=== PATIENT | female | born 1990 | race Caucasian/White ===

== ENCOUNTER → 2020-08-10 09:28 | Outpatient (BNVA) | payer OTHER, SELFPAY | PROVIDERS: PCP Internal Medicine; Referring Provider Internal Medicine; Visit Provider Physician Assistant | DX: E66.3 Overweight (principal); Z68.27 Body mass index [BMI] 27.0-27.9, adult; K90.49 Malabsorption due to intolerance, not elsewhere classified; Z98.84 Bariatric surgery status | CPT/HCPCS: 99214 ==

== ENCOUNTER → 2020-08-13 15:29 | Outpatient (BNVA) | payer OTHER, SELFPAY | PROVIDERS: PCP Internal Medicine; Visit Provider Physician Assistant | DX: K29.00 Acute gastritis without bleeding (principal); E66.3 Overweight; Z68.27 Body mass index [BMI] 27.0-27.9, adult; K90.49 Malabsorption due to intolerance, not elsewhere classified; Z98.84 Bariatric surgery status | CPT/HCPCS: 99213 ==

== ENCOUNTER → 2020-08-20 08:20 | Outpatient (BNVA) | payer OTHER, SELFPAY | PROVIDERS: PCP Internal Medicine; Visit Provider Physician Assistant | DX: K21.9 Gastro-esophageal reflux disease without esophagitis (principal); Z98.84 Bariatric surgery status; Z71.3 Dietary counseling and surveillance | CPT/HCPCS: 99213 ==

== ENCOUNTER → 2020-09-08 13:30 | Outpatient (BNVA) | payer OTHER, SELFPAY | PROVIDERS: PCP Internal Medicine; Visit Provider Dietitian, Registered | DX: Z76.89 Persons encountering health services in other specified circumstances (principal) ==

== ENCOUNTER 2020-11-05 14:32 | Outpatient (REF) | payer OTHER, SELFPAY | END 2020-11-05 14:33 | disposition home or self-care (01) | LOC: HO.LAB 14:32 | PROVIDERS: Visit Provider Internal Medicine | DX: Z20.822 Contact with and (suspected) exposure to COVID-19 (principal) | CPT/HCPCS: 36415; C9803; U0003 ==

== ENCOUNTER → 2020-11-09 08:19 | Outpatient (BNVA) | payer OTHER, SELFPAY | PROVIDERS: PCP Internal Medicine; Visit Provider Dietitian, Registered | DX: Z76.89 Persons encountering health services in other specified circumstances (principal) ==

== ENCOUNTER 2021-10-14 22:59 | Emergency (ER) | payer OTHER, SELFPAY ==
[2021-10-14 23:04] VITALS: BP 120/67; PULSE 63; RESP 16; TEMP 36.7; O2SAT 100; BMI 28.3
== END 2021-10-15 00:41 | disposition left against medical advice (07) ==
PROVIDERS: Emergency Provider Emergency Medicine; PCP Internal Medicine
DX: R20.2 Paresthesia of skin (principal)
CPT/HCPCS: 99281; 99282

== ENCOUNTER 2021-11-14 14:57 | Emergency (ER) | payer OTHER, SELFPAY ==
[2021-11-14 15:14] VITALS: BP 97/59; PULSE 66; RESP 16; TEMP 37.1; O2SAT 100; BMI 29.5
== END 2021-11-14 21:49 | disposition left against medical advice (07) ==
PROVIDERS: Emergency Provider Emergency Medicine; PCP Internal Medicine
DX: R10.30 Lower abdominal pain, unspecified (principal); Z98.84 Bariatric surgery status
CPT/HCPCS: 99281; 99282

== ENCOUNTER → 2021-11-22 08:07 | Outpatient (BNVA) | payer OTHER, SELFPAY | PROVIDERS: PCP Internal Medicine; Visit Provider Physician Assistant Surgical | DX: E66.3 Overweight (principal); K91.2 Postsurgical malabsorption, not elsewhere classified; Z90.3 Acquired absence of stomach [part of]; Z68.29 Body mass index [BMI] 29.0-29.9, adult | CPT/HCPCS: 99212 ==

== ENCOUNTER 2022-01-16 09:57 | Outpatient (REF) | payer OTHER, SELFPAY ==
[2022-01-16 11:23] LABS: MANUAL DIFF FLAG NO
[2022-01-16 11:49] LABS: Basophils Percent Auto 0.3 % (0-2); Eosinophils Percent Auto 1.3 % (0-4); Hematocrit 30.8 % (37.0-47.0); Hemoglobin 9.1 g/dl (12.0-16.0); Imm Gran Abs Auto 0.01 X10*3/uL (0.00-0.03); Imm Gran Pct Auto 0.3 % (0.0-0.4); Lymphocytes Absolute Auto 1.5 X10*3/uL (1.2-4.9); Lymphocytes Percent Auto 47.9 % (20-40); Mean Corpuscular HGB Conc 29.5 g/dl (31.0-35.0); Mean Corpuscular Hemoglobin 22.5 pg (27.0-33.0); Mean Corpuscular Volume 76.2 fL (80.0-98.0); Monocytes Absolute Auto 0.3 X10*3/uL (0.1-1.2); Monocytes Percent Auto 8.6 % (2-11); Neutrophils Absolute Auto 1.3 x10*3/uL (2.0-8.3); Neutrophils Percent Auto 41.6 % (45-73); Platelet Count 254 X10*3/uL (160-400); Red Blood Count 4.04 X10*6/uL (4.20-5.50); White Blood Count 3.1 X10*3/uL (4.8-10.8)
[2022-01-16 12:25] LABS: Estimated Average Glucose 105 mg/dL; Hemoglobin A1c % 5.3 %
[2022-01-16 12:42] LABS: Anion Gap 11 (12-20); Blood Urea Nitrogen 15 mg/dL (9-16); C Reactive Protein 0.16 mg/dL (< or = 0.50); Calcium 9.2 mg/dL (8.4-10.2); Carbon Dioxide 26 mmol/L (22-29); Chloride 104 mmol/L (96-108); Cholesterol 171 mg/dL; Estimated Glomerular Filt Rate > 60; Glucose Random 84 mg/dL (60-115); HDL Cholesterol 64 mg/dL; Iron 19 mcg/dL (30-160); LDL Cholesterol Calculated 97 mg/dl; Potassium 3.9 mmol/L (3.3-5.1); Sodium 137 mmol/L (135-145); Triglycerides 50 mg/dL
[2022-01-16 12:47] LABS: TSH reflex Free T4 0.97 uIU/mL (0.32-4.0); Vitamin D 25-OH Total 29.6 ng/mL (>30)
[2022-01-16 13:01] LABS: Percent Iron Saturation 4 % (15-50); Total Iron Binding Capacity 520 mcg/dL (228-428); Unsaturated Iron Binding 501 ug/dL
[2022-01-16 13:15] LABS: Folate 14.3 ng/mL (> or = 4.0); Vitamin B12 381 pg/mL (200-900)
[2022-01-16 13:20] LABS: Ferritin 7 ng/mL (10-122)
[2022-01-17 15:41] LABS: Calcium (PTHI) 9.1 mg/dL (8.6-10.2); PTHI 89 pg/mL (16-77)
[2022-01-20 06:27] LABS: Zinc 70 mcg/dL (60-130)
[2022-01-20 11:27] LABS: Vitamin B1 7 nmol/L (8-30)
[2022-01-24 18:36] LABS: Vitamin A 26 mcg/dL (38-98)
== END 2022-01-16 09:58 | disposition home or self-care (01) ==
LOC: HO.LAB 09:57
PROVIDERS: PCP Internal Medicine; Referring Provider Internal Medicine; Visit Provider Physician Assistant Surgical
DX: E66.3 Overweight (principal); Z68.28 Body mass index [BMI] 28.0-28.9, adult; K91.2 Postsurgical malabsorption, not elsewhere classified; Z90.3 Acquired absence of stomach [part of]
CPT/HCPCS: 36415; 80048; 80061; 82306; 82607; 82728; 82746; 83036; 83540; 83970; 84425; 84443; 84590; 84630; 85025; 86140; 99212

== ENCOUNTER → 2022-02-17 08:06 | Outpatient (BNVA) | payer OTHER, SELFPAY | PROVIDERS: PCP Internal Medicine; Visit Provider Physician Assistant Surgical | DX: Z13.89 Encounter for screening for other disorder (principal) ==

== ENCOUNTER → 2022-03-22 08:12 | Outpatient (BNVA) | payer OTHER, SELFPAY | PROVIDERS: PCP Internal Medicine; Visit Provider Physician Assistant Surgical | DX: Z13.89 Encounter for screening for other disorder (principal) ==

== ENCOUNTER → 2022-04-03 13:16 | Outpatient (BNVA) | payer OTHER, SELFPAY | PROVIDERS: PCP Internal Medicine; Referring Provider Internal Medicine; Visit Provider Physician Assistant Surgical | DX: Z13.89 Encounter for screening for other disorder (principal) ==

== ENCOUNTER 2022-08-07 08:03 | Emergency (ER) | payer OTHER, SELFPAY ==
[2022-08-07 08:13] VITALS: BP 145/56; PULSE 85; RESP 16; TEMP 36.4; O2SAT 99; BMI 31.8
--- NOTE | 2022-08-07 09:49 | ED.WOUNDLAC ---
HPI - Wound/Laceration General Chief Complaint: Wound/Laceration Stated Complaint: R INDEX FINGER INFECTION SWOLLEN Time Seen by Provider: 08/07/22 09:10 Source: patient Mode of arrival: ambulatory Limitations: no limitations History of Present Illness HPI narrative: 32-year-old female who is right-hand dominant otherwise healthy presents with reports of right index finger swelling, redness and pain. Patient reports on Sunday she cut her finger with a can of corn when opening it. She was seen at a walk-in clinic on Sunday and received a tetanus shot. She was prescribed cephalexin. She tells me that she has not pick this prescription up or started it. She did go to the emergency room yesterday but left before being seen. She tells me today when she woke up she noticed some more pain and swelling and became concerned prompting her emergency room visit today. Patient denies any fevers, chills, numbness, tingling. She does report pain to the right index finger, redness, swelling and drainage from the site. Related Data Home Medications Medication Instructions Recorded Confirmed calcium citrate 315 mg 2 tab PO BID 08/10/20 02/17/22 calcium-vitamin D3 6.25 mcg (250 unit) tablet celebrate bariatric MVI PO DAILY 02/17/22 02/17/22 Previous Rx's Medication Instructions Recorded iron,carbonyl 65 mg-vitamin C 125 1 tab PO DAILY #30 tabs 02/17/22 mg tablet,delayed release (Vitron-C) doxycycline monohydrate 100 mg 100 mg PO BID #20 caps 08/07/22 capsule Allergies Allergy/AdvReac Type Severity Reaction Status Date / Time ibuprofen [IBUPROFEN] Allergy Intermediate ABDOMINAL Verified 01/16/22 10:05 PAIN, LOW BP, low BP abd pain vommiting latex [LATEX] Allergy Intermediate RASH Verified 01/16/22 10:05 Latex Allergy Unknown rash Verified 01/16/22 10:05 swelling artificial pineapple flavor Allergy Severe anaphylaxis Uncoded 01/16/22 10:05 PINEAPPLE FLAVOR-ARTIFICIAL Allergy Severe ANAPHYLAXIS Uncoded 01/16/22 10:05 Pineapple Flavor Allergy Unknown Difficulty Uncoded 01/16/22 10:05 breathing Review of Systems Review of Systems: Yes all other systems are reviewed and are negative Constitutional: Constitutional: Reports no additional constitutional complaints, Denies chills, Denies fever(s) and Denies weakness Eyes: Eyes: Reports no additional eye complaints ENT: Reports system reviewed and no additional complaints, except as documented, Denies nasal congestion and Denies nasal discharge Cardiovascular: Cardiovascular: Reports no additional cardiovascular complaints and Denies acrocyanosis Respiratory: Respiratory: Reports no additional respiratory complaints and Denies cough Gastrointestinal: Gastrointestinal: Reports no additional gastrointestinal complaints, Denies nausea and Denies vomiting Genitourinary: Genitourinary: Reports no additional female genitourinary complaints Musculoskeletal: Musculoskeletal: Reports no additional musculoskeletal complaints, Reports arthralgias, Reports joint swelling, Denies numbness and Denies tingling Integumentary/Breasts: Skin/Breast: Reports system reviewed and no additional complaints, except as docu, Reports swelling, Reports erythema and Denies rash Neurologic: Reports system reviewed and no additional complaints, except as documented, Denies Abnormal speech present, Denies numbness, Denies tingling and Denies weakness PMFSH Past Medical History Attestation statement: The following information was validated with the patient. Source: old records reviewed and nursing notes reviewed Medical History Anxiety and depression Bilateral renal stones GERD (gastroesophageal reflux disease) H. pylori infection Hypercholesterolemia Overweight (BMI 25.0-29.9) Sciatica, right side Vitamin D deficiency Surgical History delivery delivered H/O tubal ligation S/P laparoscopic sleeve gastrectomy Scalp cyst Family History Family History Father Kidney stones Mother Hypertension Obesity (BMI 30-39.9) Arthritis of knee RYNE (obstructive sleep apnea) Hyperthyroidism Brother No problems noted. Daughter No problems noted. Son No problems noted. Social History Social History Alcohol intake: current Alcohol intake frequency: holidays/special occasions only Patient Tobacco Use Status: Never used Tobacco Advance Directives: No Advance Directives Information Provided: No Physical Exam Vital Signs: Vital Signs: Last Vital Signs Temp 97.6 F 08/07/22 08:13 Pulse 85 08/07/22 08:13 Resp 16 08/07/22 08:13 BP 145/56 H 08/07/22 08:13 Pulse Ox 99 08/07/22 08:13 BMI result Body Mass Index 31.8 Const: General: cooperative, healthy appearing, comfortable and no acute distress Orientation/consciousness: patient oriented x3 Limitations: no limitations HEENT: Head: Yes normal to inspection Ears: hearing grossly normal bilaterally General nose exam: Normal external nose present Face and sinus: Yes normal facial exam Mouth: Normal oral and palatal mucosa present Throat: Yes posterior oropharynx normal Eyes: General: appearance normal, both eyes and all related structures Pupils: Equal, round and reactive pupils present Neck: Neck: Yes normal visual inspection Resp: Effort & Inspection: normal respiratory effort Cardio: Peripheral pulses: Peripheral pulses 2+ throughout Back/Spine/Pelvis: Thoracic/Lumbar Spine: thoracic and lumbar spine normal to inspection Neuro: General: patient oriented x3, no focal motor deficits and normal sensation to monofilament Cranial nerves: Yes Equal, round and reactive pupils present Cognition (Neuro): normal cognition Speech: No Abnormal speech present Gait exam (Neuro): Normal gait present Extrem: Other: Over the dorsal aspect of the right index finger over the PIP there is an open area with purulent drainage noted. There is local erythema, swelling and tenderness which is not circumferential. Limited flexion d/t swelling and pain per patient. NV Intact distally. Hand is normal in appearance. General: Yes normal to inspection MDM - Wound/Laceration MDM Narrative Medical decision making narrative: 32 yo female right hand dominant here with swelling, redness, pain, drainage from abrasion to right index finger which occurred when opening a can of corn 6 days ago. Patient seen at walk in clinic 48 hrs post injury and given tetanus. Also given prescription for cephalexin which patient has not started yet. Here today for continued symptoms. Exam c/w with abrasion over the right PIP with local cellulitis. There is limited flexion of the digit which patient tells me has occurred since then injury. No difficulty with extension. Low concern for flexor tendon injury d/t abrasion being located over the dorsal aspect. Limited ROM likely d/t pain, swelling. NV intact distally. Cellulitis is local. Low concern for tenosynovitis. Patient should start cephalexin. Will add doxy. We discussed wound care at home. Also to return for any worrisome signs and symptoms such as redness or streaking or fever greater than 100.4. Medical Records Attestation: I reviewed the patient's medical records. Lab Data Attestation: I reviewed the patient's lab results. Discharge Plan Discharge Clinical Impression: Cellulitis of finger of right hand Patient Disposition: Home, Self-Care Instructions: Cellulitis (ED) Additional Instructions: Wash the finger with soap and water daily. Apply topical antibiotic ointment and a dressing daily. Monitor for worsening signs of infection which include fever greater than 100.4 and redness or streaking up the hand. surface supply breathing apparatus your prescription for cephalexin. We are also prescribing you doxycycline. Take both antibiotics as prescribed and with food. Prescriptions: New doxycycline monohydrate 100 mg capsule 100 mg PO BID Qty: 20 0RF No Action calcium citrate-vitamin D3 315 mg-6.25 mcg (250 unit) tablet 2 tab PO BID celebrate bariatric MVI PO DAILY Vitron-C 65 mg iron- 125 mg tablet,delayed release (DR/EC) 1 tab PO DAILY Qty: 30 3RF Rx Instructions: swallow whole; do not chew/break/dissolve/open Referrals: Janette Aleman MD [Primary Care Provider] - 5 days (as needed only) Stand Alone Forms: Work/School Release Interventions: ED Discharge Assessment Last Done: 08/07/22 09:57 Discharge Date/Time: 08/07/22 09:57
== END 2022-08-07 09:57 | disposition home or self-care (01) ==
PROVIDERS: Emergency Provider Student in an Organized Health Care Education/Training Program; PCP Internal Medicine
DX: L03.011 Cellulitis of right finger (principal); M79.644 Pain in right finger(s)
CPT/HCPCS: 99283

== ENCOUNTER 2022-12-04 08:47 | Outpatient (REF) | payer OTHER, SELFPAY ==
[2022-12-04 08:58] LABS: MANUAL DIFF FLAG NO
[2022-12-04 09:31] LABS: Basophils Percent Auto 0.2 % (0-2); Eosinophils Absolute Auto 0.1 X10*3/uL (0.0-0.4); Eosinophils Percent Auto 2.2 % (0-4); Hematocrit 32.8 % (37.0-47.0); Hemoglobin 10.2 g/dl (12.0-16.0); Imm Gran Abs Auto 0.02 X10*3/uL (0.00-0.03); Imm Gran Pct Auto 0.4 % (0.0-0.4); Lymphocytes Absolute Auto 1.9 X10*3/uL (1.2-4.9); Lymphocytes Percent Auto 36.3 % (20-40); Mean Corpuscular HGB Conc 31.1 g/dl (31.0-35.0); Mean Corpuscular Hemoglobin 23.8 pg (27.0-33.0); Mean Corpuscular Volume 76.6 fL (80.0-98.0); Mean Platelet Volume 9.8 fL (9.4-12.3); Monocytes Absolute Auto 0.3 X10*3/uL (0.1-1.2); Monocytes Percent Auto 6.2 % (2-11); Neutrophils Absolute Auto 2.9 x10*3/uL (2.0-8.3); Neutrophils Percent Auto 54.7 % (45-73); Platelet Count 299 X10*3/uL (160-400); Red Blood Count 4.28 X10*6/uL (4.20-5.50); Red Cell Distribution Width 16.3 % (11.0-16.0); Retic HGB Equivalent 27.7 pg (30.0-35.0); Reticulocyte Percent 0.9 % (0.5-1.8); Reticulocytes Absolute 0.039 X10*6/uL (0.026-0.095); White Blood Count 5.4 X10*3/uL (4.8-10.8)
[2022-12-04 09:35] LABS: Estimated Average Glucose 97 mg/dL
[2022-12-04 09:57] LABS: Alanine Aminotransferase 14 U/L (0-31); Albumin Level 3.8 g/dL (3.5-5.0); Alkaline Phosphatase 78 U/L (39-117); Anion Gap 13 (12-20); Aspartate Amino Transferase 15 U/L (5-31); Bilirubin Total 0.8 mg/dL (0.0-1.0); Blood Urea Nitrogen 12 mg/dL (9-16); Carbon Dioxide 23 mmol/L (22-29); Chloride 106 mmol/L (96-108); Cholesterol 183 mg/dL; Estimated Glomerular Filt Rate > 60; Glucose Random 80 mg/dL (60-115); HDL Cholesterol 71 mg/dL; Iron 61 mcg/dL (30-160); LDL Cholesterol Calculated 97 mg/dl; Percent Iron Saturation 13 % (15-50); Potassium 4.4 mmol/L (3.3-5.1); Sodium 138 mmol/L (135-145); Total Iron Binding Capacity 459 mcg/dL (228-428); Total Protein 6.8 g/dL (6.5-8.0); Triglycerides 76 mg/dL; Unsaturated Iron Binding 398 ug/dL
[2022-12-04 10:31] LABS: Ferritin 8 ng/mL (10-122); Folate 12.1 ng/mL (> or = 4.0); Free T4 (Free Thyroxine) 0.78 ng/dL (0.71-1.85); Thyroid Stimulating Hormone 1.45 uIU/mL (0.32-4.0); Vitamin B12 504 pg/mL (200-900)
[2022-12-07 23:54] LABS: Vitamin A 36 mcg/dL (38-98)
[2022-12-09 11:23] LABS: Vitamin B1 <6 nmol/L (8-30)
== END 2022-12-04 08:48 | disposition home or self-care (01) ==
LOC: HO.LAB 08:47
PROVIDERS: PCP Internal Medicine; Visit Provider Internal Medicine
DX: R73.02 Impaired glucose tolerance (oral) (principal); D50.9 Iron deficiency anemia, unspecified; E78.00 Pure hypercholesterolemia, unspecified; Z98.84 Bariatric surgery status
CPT/HCPCS: 36415; 80053; 80061; 82607; 82728; 82746; 83036; 83540; 84425; 84439; 84443; 84590; 85025; 85045

== ENCOUNTER → 2022-12-06 13:35 | Outpatient (BNVA) | payer OTHER, SELFPAY | PROVIDERS: PCP Internal Medicine; Visit Provider Surgery | DX: L72.11 Pilar cyst (principal) | CPT/HCPCS: 99202 ==

== ENCOUNTER 2022-12-26 09:49 | Emergency (ER) | payer OTHER, SELFPAY ==
--- NOTE | ~2022-12-26 | US_ITS ---
EXAMINATION: US APPENDIX CLINICAL INFORMATION: Pain COMPARISON: Pelvic ultrasound from 11/26/2019. Abdomen/pelvis CT from 08/14/2018. TECHNIQUE: Sonographic imaging of the right lower quadrant was performed using a linear 12 MHz transducer. FINDINGS: There is distal shadowing from the visualized bowel gas in the right lower quadrant. No sonographic evidence of dilated bowel. No focal soft tissue inflammation, free fluid or lymphadenopathy. The appendix is not visualized. US/US appendix IMPRESSION: The appendix is not visualized. However, there are no inflammatory changes in the right lower quadrant. No free fluid in the right lower quadrant. Since the appendix is not seen, follow-up abdominal/pelvis CT imaging may be obtained if there is a high clinical suspicion.
--- NOTE | ~2022-12-26 | CT_ITS ---
EXAMINATION: CT ABDOMEN AND PELVIS WITH CONTRAST CLINICAL INFORMATION: Right flank pain. Unable to pass gas. History of gastric sleeve. COMPARISON: CT abdomen pelvis 04/24/2015 and 08/14/2018 TECHNIQUE: Multidetector volumetric images were obtained from the superior aspect of the liver through the pubic symphysis following administration 85 mL of Omnipaque 350 intravenous contrast. Sagittal and coronal reformatted images were obtained on the technologist's workstation. Oral contrast: No This CT examination was performed using dose optimization techniques as appropriate, variously including the following: *Automated exposure control *Adjustment of mA and/or kV according to patient size (this includes techniques or standardized protocols for targeted exams where dose is matched to indication/reason for exam; i.e. extremities or head) *Use of iterative reconstruction technique DLP: 569 mGy-cm FINDINGS: LUNG BASES: The visualized lung bases are unremarkable. LIVER, GALLBLADDER, AND BILIARY TREE: The liver size is normal. The liver is slightly heterogeneous in a geographic fashion in the posterior upper right lobe (segment 7). No evidence of focal mass. No dilated bile ducts are seen. The gallbladder is unremarkable with no evidence of radiopaque gallstones, gallbladder wall thickening, or obvious pericholecystic inflammatory changes. PANCREAS: Unremarkable. SPLEEN: Unremarkable. ADRENAL GLANDS: Unremarkable. KIDNEYS AND URETERS: The kidneys are normal in size, shape, and attenuation. No hydronephrosis, hydroureter, or calculi seen. No perinephric stranding. BLADDER: Unremarkable. GASTROINTESTINAL TRACT: Evidence of sleeve gastrectomy; no inflammatory changes are seen around the surgical site. The small and large bowel are unremarkable. The appendix is unremarkable. ABDOMINAL WALL: No significant hernia is appreciated. LYMPH NODES: Normal. VASCULAR: Unremarkable. PELVIC VISCERA: The uterus and adnexa are not enlarged. A left paraovarian/exophytic ovarian cyst measures 2.9 cm in size without surrounding inflammatory changes. OSSEOUS STRUCTURES: Unremarkable. CT/CT abdomen pelvis w IV con IMPRESSION: No cause for right lower quadrant/flank pain is seen Simple left exophytic ovarian/paraovarian cyst which does not require follow-up and measures 2.9 cm in maximum size. Fleischner guidelines were followed.
--- NOTE | ~2022-12-26 | US_ITS ---
EXAMINATION: US PELVIS CLINICAL INFORMATION: Right lower quadrant/suprapubic abdominal pain. LMP 12/07/2022 COMPARISON: Pelvic ultrasound 11/26/2019 TECHNIQUE: Ultrasound of the pelvis is performed using both transabdominal and transvaginal transducers along with Doppler. Transvaginal imaging is performed due to inadequate visualization transabdominally. FINDINGS: Uterus: The uterus is retroflexed and measures 10.1 x 3.8 x 6.1 cm. Changes from prior section are seen in the anterior uterus. The double wall endometrial thickness is 0.6 mm. No uterine masses are seen. Incidental nabothian cysts are seen in the cervix. Adnexa: Both ovaries are visualized. There is normal color flow to the adnexa. There is no ovarian torsion. There is no pelvic ascites or fluid collection a small volume of free fluid is seen in the cul-de-sac.. Left adnexal pelvic varices are seen. Right ovary measures measures 4.4 x 2.1 x 3.0 cm. 14.5 mL. Left ovary measures 2.8 x 2.2 x 2.4 cm, 7.7 mL. US/US pelvic ovarian doppler IMPRESSION: No acute abnormality is seen. No evidence of ovarian torsion at this time. No evidence of adnexal cyst or mass.
--- NOTE | ~2022-12-26 | US_ITS ---
EXAMINATION: US PELVIS CLINICAL INFORMATION: Right lower quadrant/suprapubic abdominal pain. LMP 12/07/2022 COMPARISON: Pelvic ultrasound 11/26/2019 TECHNIQUE: Ultrasound of the pelvis is performed using both transabdominal and transvaginal transducers along with Doppler. Transvaginal imaging is performed due to inadequate visualization transabdominally. FINDINGS: Uterus: The uterus is retroflexed and measures 10.1 x 3.8 x 6.1 cm. Changes from prior section are seen in the anterior uterus. The double wall endometrial thickness is 0.6 mm. No uterine masses are seen. Incidental nabothian cysts are seen in the cervix. Adnexa: Both ovaries are visualized. There is normal color flow to the adnexa. There is no ovarian torsion. There is no pelvic ascites or fluid collection a small volume of free fluid is seen in the cul-de-sac.. Left adnexal pelvic varices are seen. Right ovary measures measures 4.4 x 2.1 x 3.0 cm. 14.5 mL. Left ovary measures 2.8 x 2.2 x 2.4 cm, 7.7 mL. US/US pelvic and transvaginal IMPRESSION: No acute abnormality is seen. No evidence of ovarian torsion at this time. No evidence of adnexal cyst or mass.
[2022-12-26 09:57] VITALS: BP 105/43; PULSE 80; RESP 16; TEMP 36.4; O2SAT 100; BMI 32.9
[2022-12-26 10:29] LABS: MANUAL DIFF FLAG NO
[2022-12-26 10:40] LABS: Basophils Percent Auto 0.4 % (0-2); Eosinophils Absolute Auto 0.1 X10*3/uL (0.0-0.4); Eosinophils Percent Auto 2.2 % (0-4); Hematocrit 33.7 % (37.0-47.0); Hemoglobin 10.3 g/dl (12.0-16.0); Imm Gran Abs Auto 0.02 X10*3/uL (0.00-0.03); Imm Gran Pct Auto 0.4 % (0.0-0.4); Lymphocytes Absolute Auto 1.9 X10*3/uL (1.2-4.9); Lymphocytes Percent Auto 38.9 % (20-40); Mean Corpuscular HGB Conc 30.6 g/dl (31.0-35.0); Mean Corpuscular Hemoglobin 23.7 pg (27.0-33.0); Mean Corpuscular Volume 77.6 fL (80.0-98.0); Mean Platelet Volume 9.9 fL (9.4-12.3); Monocytes Absolute Auto 0.4 X10*3/uL (0.1-1.2); Monocytes Percent Auto 8.7 % (2-11); Neutrophils Absolute Auto 2.5 x10*3/uL (2.0-8.3); Neutrophils Percent Auto 49.4 % (45-73); Platelet Count 257 X10*3/uL (160-400); Red Blood Count 4.34 X10*6/uL (4.20-5.50); Red Cell Distribution Width 16.6 % (11.0-16.0)
[2022-12-26 10:55] LABS: Alanine Aminotransferase 14 U/L (0-31); Albumin Level 3.9 g/dL (3.5-5.0); Alkaline Phosphatase 87 U/L (39-117); Anion Gap 12 (12-20); Aspartate Amino Transferase 15 U/L (5-31); Bilirubin Total 0.6 mg/dL (0.0-1.0); Blood Urea Nitrogen 17 mg/dL (9-16); Carbon Dioxide 27 mmol/L (22-29); Chloride 108 mmol/L (96-108); Creatinine Clr Calc Pharmacy 109.7; Estimated Glomerular Filt Rate > 60; Glucose Random 90 mg/dL (60-115); Potassium 4.1 mmol/L (3.3-5.1); Sodium 143 mmol/L (135-145); Total Protein 7.1 g/dL (6.5-8.0)
[2022-12-26 11:51] VITALS: BP 112/70; PULSE 68; RESP 16; TEMP 36.7; O2SAT 98
--- NOTE | 2022-12-26 11:51 | ED_ITS ---
HPI - Abdominal Pain General Chief Complaint: Abdominal Pain <KUSUM Dunaway Last Filed: 12/26/22 11:55> Stated Complaint: LRQ pain <KUSUM Dunaway Last Filed: 12/26/22 11:55> Time Seen by Provider: 12/26/22 12:43 <KUSUM Dunaway Last Filed: 12/26/22 11:55> Source: patient <KUSUM Carvajal Last Filed: 12/26/22 16:34> Mode of arrival: ambulatory <KUSUM Carvajal Last Filed: 12/26/22 16:34> Limitations: no limitations <KUSUM Carvajal Last Filed: 12/26/22 16:34> History of Present Illness HPI narrative: 32yoF with a PMHx of gastric sleeve, anemia, depression, anxiety, GERD, H pylori, hyperlipidemia and sciatica who is presenting to the ER with complaints of right lower quadrant abdominal/flank pain for the past week with associated constipation, unable to pass gas and rectal pressure. Her last bowel movement was approximately 1 week ago. She reports she has never felt this way in the past. She denies any fevers, chest pain or shortness of breath, nausea/vomiting, dysuria, hematuria, abnormal vaginal discharge, diarrhea, black or bloody stools, recent travel or sick contacts or any other symptoms complaints or concerns at this time. <KUSUM Carvajal Last Filed: 12/26/22 16:34> MD elicited complaint: abdominal pain and flank pain <KUSUM Carvajal Last Filed: 12/26/22 16:34> Pertinent past history: other (Gastric sleeve) <KUSUM Carvajal Last Filed: 12/26/22 16:34> Onset (ago): week(s) (1 worse today) <KUSUM Carvajal Last Filed: 12/26/22 16:34> Pain Consistency: constant <KUSUM Carvajal Last Filed: 12/26/22 16:34> Location: RLQ and R flank <KUSUM Carvajal Last Filed: 12/26/22 16:34> Severity: moderate <KUSUM Carvajal Last Filed: 12/26/22 16:34> Quality: cramping and aching <KUSUM Carvajal Last Filed: 12/26/22 16:34> Radiation: R flank <KUSUM Carvajal Last Filed: 12/26/22 16:34> Exacerbating factors: bowel movement <KUSUM Carvajal Last Filed: 12/26/22 16:34> Relieving factors: nothing <KUSUM Carvajal Last Filed: 12/26/22 16:34> Associated symptoms: constipation <KUSUM Carvajal Last Filed: 12/26/22 16:34> Related Data Home Medications: Home Medications Medication Instructions Recorded Confirmed calcium citrate 315 mg 2 tab PO BID 08/10/20 12/06/22 calcium-vitamin D3 6.25 mcg (250 unit) tablet celebrate bariatric MVI PO DAILY 02/17/22 12/06/22 Previous Rx's Medication Instructions Recorded triamcinolone acetonide 0.5 % 1 appl topical BID #15 grams 11/27/22 topical cream thiamine HCl (vitamin B1) 50 mg 50 mg PO DAILY #90 tabs 12/11/22 tablet acetaminophen 500 mg tablet 1,000 mg PO QID PRN fever or pain 12/26/22 (Tylenol Extra Strength) #14 tabs cyclobenzaprine 10 mg tablet 10 mg PO Q8H #14 tabs 12/26/22 <KUSUM Dunaway Last Filed: 12/26/22 11:55> Allergies/Adverse Reactions: Allergies Allergy/AdvReac Type Severity Reaction Status Date / Time ibuprofen [IBUPROFEN] Allergy Intermediate ABDOMINAL Verified 12/06/22 13:40 PAIN, LOW BP, low BP abd pain vommiting latex [LATEX] Allergy Intermediate Rash, Verified 12/06/22 13:40 Swelling artificial pineapple flavor Allergy Severe anaphylaxis, Uncoded 12/06/22 13:40 Difficulty breathing <KUSUM Dunaway Last Filed: 12/26/22 11:55> Review of Systems Review of Systems Constitutional : No Fever, No Chills, No Night Sweats, No Fatigue, No Malaise Cardiovascular : No Chest Pain, No SOB Respiratory : No Cough, No Sputum, No Wheezing, No Dyspnea Gastrointestinal : No Nausea, No Vomiting, No Diarrhea, + abdominal Pain, No Hematochezia, No Melena Genitourinary : No irregular bleeding, No Dysuria, No Urinary Frequency, No Hematuria,No Urinary Incontinence, No Urgency, + Flank Pain Musculoskeletal : No joint pain, No Myalgias, No Joint Swelling Skin : No Skin Lesions, No rash Neuro : No Weakness, No Numbness, No Paresthesias, No Loss of Consciousness, No Dizziness, No Headache Heme/Lymph: No Lymphadenopathy Endocrine : No Temperature Intolerance <KUSUM Carvajal - Last Filed: 12/26/22 16:34> Yes all other systems are reviewed and are negative <KUSUM Carvajal - Last Filed: 12/26/22 16:34> FORMERLY [facility], [facility] Past Medical History Attestation statement: The following information was validated with the patient. <KUSUM Carvajal - Last Filed: 12/26/22 16:34> Source: old records reviewed and nursing notes reviewed <KUSUM Carvajal - Last Filed: 12/26/22 16:34> Medical History: Medical History Anemia Anxiety and depression Bilateral renal stones GERD (gastroesophageal reflux disease) H. pylori infection Hypercholesterolemia Impaired glucose tolerance Overweight (BMI 25.0-29.9) Physical exam Sciatica, right side Vitamin D deficiency Weight gain <KUSUM Dunaway - Last Filed: 12/26/22 11:55> Surgical History: Surgical History delivery delivered H/O tubal ligation S/P laparoscopic sleeve gastrectomy Scalp cyst <KUSUM Dunaway - Last Filed: 12/26/22 11:55> Family History Family History: Family History Father Kidney stones Mother Hypertension Obesity (BMI 30-39.9) Arthritis of knee RYNE (obstructive sleep apnea) Hyperthyroidism Brother No problems noted. Daughter No problems noted. Son No problems noted. Maternal Grandmother Heart attack <KUSUM Dunaway - Last Filed: 12/26/22 11:55> Social History Social History: Social History Alcohol intake: current Alcohol intake frequency: holidays/special occasions only Patient Tobacco Use Status: Never used Tobacco Advance Directives: No Advance Directives Information Provided: Yes Cognitive needs: No Hearing needs: No Vision needs: No <KUSUM Dunaway - Last Filed: 12/26/22 11:55> Physical Exam ED Vital Signs: Vital Signs - 24 hr 12/26/22 09:57 12/26/22 11:51 12/26/22 15:26 Temperature 97.6 F 98.0 F 98.7 F Pulse Rate 80 68 62 Respiratory Rate 16 16 20 Blood Pressure 105/43 L 112/70 100/52 L Pulse Oximetry 100 98 99 Oxygen Delivery Method Room Air Room Air Room Air BMI result Body Mass Index 32.9 <KUSUM Dunaway - Last Filed: 12/26/22 11:55> Vital Signs - 24 hr 12/26/22 09:57 12/26/22 11:51 12/26/22 15:26 Temperature 97.6 F 98.0 F 98.7 F Pulse Rate 80 68 62 Respiratory Rate 16 16 20 Blood Pressure 105/43 L 112/70 100/52 L Pulse Oximetry 100 98 99 Oxygen Delivery Method Room Air Room Air Room Air BMI result Body Mass Index 32.9 Vital signs have been reviewed and all within normal limits <KUSUM Carvajal - Last Filed: 12/26/22 16:34> Appearance: Alert. Oriented X3. No acute distress. Head: Normal external exam. Normocephalic. Eyes: PERRLA. EOMI. Conjunctiva and sclera normal. Eyelids normal. ENT: Pharynx normal. Uvula midline. Moist mucous membranes. No trismus noted. No drooling noted. No muffled voice noted. Neck: Normal inspection. Neck supple. FROM. No adenopathy. No meningeal signs. CVS: Normal heart rate and rhythm. Heart sound normal. No murmurs noted. Pulses normal throughout. Respiratory: No respiratory distress. Painless inspiration. Breath sounds normal. No wheezes/rales/rhonchi noted. Chest nontender. No accessory muscle usage noted or decreased air movement noted. Abdomen: Soft and mild tenderness palpation to the right flank/right lower quadrant. Nondistended. No guarding. No rigidity. Bowel sounds normal in all 4 quadrants. No distention noted. No organomegaly noted. No visible injury noted. No rebound tenderness. Negative Rovsing sign. Negative obturator's sign. Negative psoas sign. Negative Jeff sign. Back: No CVA tenderness. Full range of motion noted. Skin: Skin warm and dry. Normal skin color. Normal skin turgor. No rashes/lesions/lacerations noted. Extremities: Extremities exhibit normal range of motion. Extremities nontender. Neuro: Oriented X 3. No motor deficit. No sensory deficit. Reflexes normal. Normal steady gait. CN's II-XII intact bilaterally? <KUSUM Carvajal - Last Filed: 12/26/22 16:34> Course Course Course Narrative: RME--32-year-old female with past history of anemia, depression, anxiety, GERD, H pylori, HLD, sciatica presenting to the ED complaining of right lower quadrant abdominal pain x1 week. Denies radiation of pain. Reports associated nausea, pain described as pressure. Denies dysuria/hematuria, vomiting/diarrhea Abdomen soft with RLQ tenderness, no rebound or guarding, no CVAT Labs previously obtained and unremarkable, lipase/magnesium/hCG and UA added. Ultrasounds currently pending, if negative +/- CT <KUSUM Dunaway - Last Filed: 12/26/22 11:55> Reevaluation(s) Reevaluation #1: 32yoF with a PMHx of gastric sleeve, anemia, depression, anxiety, GERD, H pylori, hyperlipidemia and sciatica who is presenting to the ER with complaints of right lower quadrant abdominal/flank pain for the past week with associated constipation, unable to pass gas and rectal pressure. Her last bowel movement was approximately 1 week ago. She reports she has never felt this way in the past. Patient had labs while she was in the waiting room patient mild baseline anemia with an H&H of 10.3/33.7. BUN 17. Otherwise all other labs are within normal limits. She had a transvaginal/Doppler and appendix ultrasound they were unable to see the appendix although no lymphadenopathy or inflammation around the appendix and ovarian/transvaginal/pelvic ultrasound normal. Plan: Therefore at this time will obtain a CT scan abdomen pelvis with IV contrast re-evaluate. <KUSUM Carvajal - Last Filed: 12/26/22 16:34> Time: 12:48 <KUSUM Carvajal - Last Filed: 12/26/22 16:34> Reevaluation #2: CT scan abdomen pelvis with IV contrast negative for any acute processes the right lower quadrant/flank area. She does appear to have a left ovarian or periovarian cyst which is 2.9 cm no further evaluation for this. Therefore at this time patient most likely muscular skeletal pain rated to her sciatica or lumbar strain. Awaiting UA if UA is negative patient will be discharged with symptomatic treatment instructions return if any new or worsening symptoms to follow up with primary care provider. Patient understands agrees this plan. <KUSUM Carvajal - Last Filed: 12/26/22 16:34> Time: 16:11 <KUSUM Carvajal - Last Filed: 12/26/22 16:34> Reevaluation #3: UA within normal limits will DC home at this time. <KUSUM Carvajal - Last Filed: 12/26/22 16:34> Time: 16:33 <KUSUM Carvajal - Last Filed: 12/26/22 16:34> Medical Decision Making Lab Data MDM Lab Attestation statement: I reviewed the patient's lab results. <KUSUM Carvajal - Last Filed: 12/26/22 16:34> Result Diagrams: 12/26/22 10:26 12/26/22 10:26 <KUSUM Dunaway - Last Filed: 12/26/22 11:55> Labs: Lab Results 12/26/22 12/26/22 12/26/22 Range/Units 10:26 10:26 15:33 WBC 5.0 (4.8-10.8) X10*3/uL RBC 4.34 (4.20-5.50) X10*6/uL Hgb 10.3 L (12.0-16.0) g/dl Hct 33.7 L (37.0-47.0) % MCV 77.6 L (80.0-98.0) fL MCH 23.7 L (27.0-33.0) pg MCHC 30.6 L (31.0-35.0) g/dl RDW 16.6 H (11.0-16.0) % Plt Count 257 (160-400) X10*3/uL MPV 9.9 (9.4-12.3) fL Immature Gran % (Auto) 0.4 (0.0-0.4) % Neut % (Auto) 49.4 (45-73) % Lymph % (Auto) 38.9 (20-40) % Meigs % (Auto) 8.7 (2-11) % Eos % (Auto) 2.2 (0-4) % Baso % (Auto) 0.4 (0-2) % Lymph # (Auto) 1.9 (1.2-4.9) X10*3/uL Meigs # (Auto) 0.4 (0.1-1.2) X10*3/uL Eos # (Auto) 0.1 (0.0-0.4) X10*3/uL Baso # (Auto) 0.0 (0.0-0.2) X10*3/uL Abs Immat Gran (auto) 0.02 (0.00-0.03) X10*3/uL Absolute Neuts (auto) 2.5 (2.0-8.3) x10*3/uL Absolute Nucleated RBC 0.000 (0.0-0.012) X10*3/uL Nucleated RBC % (auto) 0.0 (0.0-0.2) /100WBC Sodium 143 (135-145) mmol/L Potassium 4.1 (3.3-5.1) mmol/L Chloride 108 (96-108) mmol/L Carbon Dioxide 27 (22-29) mmol/L Anion Gap 12 (12-20) BUN 17 H (9-16) mg/dL Creatinine 0.75 (0.5-1.4) mg/dL Estim Creat Clear Calc 109.7 Estimated GFR > 60 Random Glucose 90 (60-115) mg/dL Calcium 9.0 (8.4-10.2) mg/dL Magnesium 1.9 (1.6-2.6) mg/dL Total Bilirubin 0.6 (0.0-1.0) mg/dL AST 15 (5-31) U/L ALT 14 (0-31) U/L Alkaline Phosphatase 87 (39-117) U/L Total Protein 7.1 (6.5-8.0) g/dL Albumin 3.9 (3.5-5.0) g/dL Lipase 17 (8-78) U/L Beta HCG, Quant < 2 mIU/mL Urine Color Yellow Urine Appearance Clear Urine pH 7.0 (5.0-9.0) Ur Specific Hardin >= 1.030 H (1.005-1.025) Urine Protein Negative (Neg-Trace) mg/dL Urine Glucose (UA) Negative (Negative) mg/dL Urine Ketones Negative (Negative) mg/dL Urine Blood Negative (Negative) Urine Nitrite Negative (Negative) Ur Leukocyte Esterase Negative (Negative) <KUSUM Dunaway - Last Filed: 12/26/22 11:55> Lab Results 12/26/22 12/26/22 12/26/22 Range/Units 10:26 10:26 15:33 WBC 5.0 (4.8-10.8) X10*3/uL RBC 4.34 (4.20-5.50) X10*6/uL Hgb 10.3 L (12.0-16.0) g/dl Hct 33.7 L (37.0-47.0) % MCV 77.6 L (80.0-98.0) fL MCH 23.7 L (27.0-33.0) pg MCHC 30.6 L (31.0-35.0) g/dl RDW 16.6 H (11.0-16.0) % Plt Count 257 (160-400) X10*3/uL MPV 9.9 (9.4-12.3) fL Immature Gran % (Auto) 0.4 (0.0-0.4) % Neut % (Auto) 49.4 (45-73) % Lymph % (Auto) 38.9 (20-40) % Meigs % (Auto) 8.7 (2-11) % Eos % (Auto) 2.2 (0-4) % Baso % (Auto) 0.4 (0-2) % Lymph # (Auto) 1.9 (1.2-4.9) X10*3/uL Meigs # (Auto) 0.4 (0.1-1.2) X10*3/uL Eos # (Auto) 0.1 (0.0-0.4) X10*3/uL Baso # (Auto) 0.0 (0.0-0.2) X10*3/uL Abs Immat Gran (auto) 0.02 (0.00-0.03) X10*3/uL Absolute Neuts (auto) 2.5 (2.0-8.3) x10*3/uL Absolute Nucleated RBC 0.000 (0.0-0.012) X10*3/uL Nucleated RBC % (auto) 0.0 (0.0-0.2) /100WBC Sodium 143 (135-145) mmol/L Potassium 4.1 (3.3-5.1) mmol/L Chloride 108 (96-108) mmol/L Carbon Dioxide 27 (22-29) mmol/L Anion Gap 12 (12-20) BUN 17 H (9-16) mg/dL Creatinine 0.75 (0.5-1.4) mg/dL Estim Creat Clear Calc 109.7 Estimated GFR > 60 Random Glucose 90 (60-115) mg/dL Calcium 9.0 (8.4-10.2) mg/dL Magnesium 1.9 (1.6-2.6) mg/dL Total Bilirubin 0.6 (0.0-1.0) mg/dL AST 15 (5-31) U/L ALT 14 (0-31) U/L Alkaline Phosphatase 87 (39-117) U/L Total Protein 7.1 (6.5-8.0) g/dL Albumin 3.9 (3.5-5.0) g/dL Lipase 17 (8-78) U/L Beta HCG, Quant < 2 mIU/mL Urine Color Yellow Urine Appearance Clear Urine pH 7.0 (5.0-9.0) Ur Specific Hardin >= 1.030 H (1.005-1.025) Urine Protein Negative (Neg-Trace) mg/dL Urine Glucose (UA) Negative (Negative) mg/dL Urine Ketones Negative (Negative) mg/dL Urine Blood Negative (Negative) Urine Nitrite Negative (Negative) Ur Leukocyte Esterase Negative (Negative) <KUSUM Carvajal - Last Filed: 12/26/22 16:34> Independent Interpretation I performed an independent interpretation of an: Ultrasound (I reviewed these results and discussed with patient) and CT Scan (I reviewed these results and discussed with patient) <KUSUM Carvajal ast Filed: 12/26/22 16:34> Radiology Impression Discussion of test interpretation with radiology: I have reviewed the radiologist's reading. <KUSUM Carvajal - Last Filed: 12/26/22 16:34> Radiologist Impression: FINDINGS: LUNG BASES: The visualized lung bases are unremarkable.? LIVER, GALLBLADDER, AND BILIARY TREE: The liver size is normal. The liver is slightly heterogeneous in a geographic fashion in the posterior upper right lobe (segment 7). No evidence of focal mass. No dilated bile ducts are seen. The gallbladder is unremarkable with no evidence of radiopaque gallstones, gallbladder wall thickening, or obvious pericholecystic inflammatory changes.? PANCREAS: Unremarkable.? SPLEEN: Unremarkable.? ADRENAL GLANDS: Unremarkable.? KIDNEYS AND URETERS: The kidneys are normal in size, shape, and attenuation. No hydronephrosis, hydroureter, or calculi seen. No perinephric stranding. ? BLADDER: Unremarkable.? GASTROINTESTINAL TRACT: Evidence of sleeve gastrectomy; no inflammatory changes are seen around the surgical site. The small and large bowel are unremarkable. The appendix is unremarkable.? ABDOMINAL WALL: No significant hernia is appreciated.? LYMPH NODES: Normal. VASCULAR: Unremarkable. PELVIC VISCERA: The uterus and adnexa are not enlarged. A left paraovarian/exophytic ovarian cyst measures 2.9 cm in size without surrounding inflammatory changes. OSSEOUS STRUCTURES: Unremarkable.? CT/CT abdomen pelvis w IV con IMPRESSION: No cause for right lower quadrant/flank pain is seen ? Simple left exophytic ovarian/paraovarian cyst which does not require follow-up and measures 2.9 cm in maximum size. ? Fleischner guidelines were followed. FINDINGS: Uterus: The uterus is retroflexed and measures 10.1 x 3.8 x 6.1 cm.? Changes from prior section are seen in the anterior uterus. The double wall endometrial thickness is 0.6 mm.? No uterine masses are seen.? Incidental nabothian cysts are seen in the cervix. Adnexa: Both ovaries are visualized. There is normal color flow to the adnexa. There is no ovarian torsion.? There is no pelvic ascites or fluid collection a small volume of free fluid is seen in the cul-de-sac.. Left adnexal pelvic varices are seen. Right ovary measures measures 4.4 x 2.1 x 3.0 cm. 14.5 mL. Left ovary measures 2.8 x 2.2 x 2.4 cm, 7.7 mL. US/US pelvic and transvaginal IMPRESSION: No acute abnormality is seen. No evidence of ovarian torsion at this time. No evidence of adnexal cyst or mass. CLINICAL INFORMATION: Pain? COMPARISON: Pelvic ultrasound from 11/26/2019. Abdomen/pelvis CT from 08/14/2018.? TECHNIQUE: Sonographic imaging of the right lower quadrant was performed using a linear 12 MHz transducer.? FINDINGS: There is distal shadowing from the visualized bowel gas in the right lower quadrant. No sonographic evidence of dilated bowel. No focal soft tissue inflammation, free fluid or lymphadenopathy. The appendix is not visualized.? US/US appendix IMPRESSION: The appendix is not visualized. However, there are no inflammatory changes in the right lower quadrant. No free fluid in the right lower quadrant.? Since the appendix is not seen, follow-up abdominal/pelvis CT imaging may be obtained if there is a high clinical suspicion. <KUSUM Carvajal - Last Filed: 12/26/22 16:34> Prescription Management I considered prescription management with: Pain Medication <KUSUM Carvajal Last Filed: 12/26/22 16:34> Medications Administered Discontinued Medications Generic Name Dose Route Start Last Admin Trade Name Freq PRN Reason Stop Dose Admin Iohexol 85 ml 12/26/22 13:32 12/26/22 13:33 Iohexol 350 Mg/Ml 100 Ml Infus..Btl IV 12/26/22 13:33 85 ml ONCE ONE Administration <KUSUM Dunaway - Last Filed: 12/26/22 11:55> Medications Administered Discontinued Medications Generic Name Dose Route Start Last Admin Trade Name Freq PRN Reason Stop Dose Admin Iohexol 85 ml 12/26/22 13:32 12/26/22 13:33 Iohexol 350 Mg/Ml 100 Ml Infus..Btl IV 12/26/22 13:33 85 ml ONCE ONE Administration <KUSUM Carvajal Last Filed: 12/26/22 16:34> Discharge Plan Discharge Clinical Impression: Right lower quadrant abdominal pain <KUSUM Dunaway Last Filed: 12/26/22 11:55> Patient Disposition: Home, Self-Care <KUSUM Dunaway - Last Filed: 12/26/22 11:55> Instructions: Abdominal Pain (ED), Musculoskeletal Pain (ED) <KUSUM Dunaway - Last Filed: 12/26/22 11:55> Prescriptions: New acetaminophen [Tylenol Extra Strength] 500 mg tablet 1,000 mg PO QID PRN (Reason: fever or pain) Qty: 14 0RF cyclobenzaprine 10 mg tablet 10 mg PO Q8H Qty: 14 0RF No Action thiamine HCl (vitamin B1) 50 mg tablet 50 mg PO DAILY Qty: 90 3RF triamcinolone acetonide 0.5 % cream 1 appl topical BID Qty: 15 0RF calcium citrate-vitamin D3 315 mg-6.25 mcg (250 unit) tablet 2 tab PO BID celebrate bariatric MVI PO DAILY <KUSUM Dunaway - Last Filed: 12/26/22 11:55> Referrals: Po,Janette Cervantes MD [Primary Care Provider] - 2 days <KUSUM Dunaway - Last Filed: 12/26/22 11:55> Stand Alone Forms: Work/School Release <KUSUM Dunaway - Last Filed: 12/26/22 11:55>
[2022-12-26 12:24] LABS: Lipase 17 U/L (8-78); Magnesium 1.9 mg/dL (1.6-2.6)
[2022-12-26 12:26] LABS: HCG Quantitative < 2 mIU/mL
[2022-12-26] MEDS: iohexoL 350 MG/ML 100 ML INFUS..BTL 85 ML IV (13:33)
[2022-12-26 15:26] VITALS: BP 100/52; PULSE 62; RESP 20; TEMP 37.1; O2SAT 99
[2022-12-26 15:57] LABS: Appearance Urine Clear; Color Urine Yellow; Glucose Urine UA Negative (Negative); Leukocyte Esterase Urine Negative (Negative); Nitrite Urine Negative (Negative); Specific Gravity - Urine >= 1.030 (1.005-1.025); Urine Blood Negative (Negative); Urine Ketones Negative (Negative); Urine Protein Negative (Neg-Trace)
--- NOTE | 2022-12-26 16:43 | PC.NURSE ---
ASSESSED AND D/C BY PROVIDER
== END 2022-12-26 16:43 | disposition home or self-care (01) ==
PROVIDERS: Physician Assistant; Emergency Provider Emergency Medicine Emergency Medical Services; PCP Internal Medicine
DX: R10.31 Right lower quadrant pain (principal); F41.1 Generalized anxiety disorder; F43.0 Acute stress reaction; R10.2 Pelvic and perineal pain; K59.00 Constipation, unspecified; R25.2 Cramp and spasm; Z98.84 Bariatric surgery status; Z79.899 Other long term (current) drug therapy
CPT/HCPCS: 36415; 74177; 76705; 76830; 76856; 80053; 81003; 83690; 83735; 84702; 85025; 93975; 99283; 99284; Q9967

== ENCOUNTER → 2023-02-02 10:55 | Outpatient (BNVA) | payer OTHER, SELFPAY | PROVIDERS: PCP Internal Medicine; Visit Provider Dietitian, Registered | DX: E66.9 Obesity, unspecified (principal); Z68.34 Body mass index [BMI] 34.0-34.9, adult; Z71.3 Dietary counseling and surveillance | CPT/HCPCS: 97802 ==

== ENCOUNTER 2023-02-23 19:55 | Emergency (ER) | payer OTHER, SELFPAY | END 2023-02-23 22:47 | disposition left against medical advice (07) | PROVIDERS: Emergency Provider Emergency Medicine; PCP Internal Medicine | DX: J02.9 Acute pharyngitis, unspecified (principal) ==

== ENCOUNTER 2024-02-19 12:23 | Outpatient (AMB) | payer OTHER, SELFPAY ==
[2024-02-19 12:26] VITALS: BP 116/60; PULSE 70; TEMP 36.2; O2SAT 98; BMI 32.4
--- NOTE | 2024-02-19 12:26 | MHC.OFFWIV ---
Intake Vital Signs 02/19/24 12:26 Height 5 ft 3 in Weight 183 lb BMI 32.4 BP 116/60 Blood Pressure Location Lt brachial Position Sitting Pulse 70 Pulse Source Pulse Oximeter Temp 97.2 F Temp Source Temporal Artery Scan Pulse Oximetry (%) 98 Oxygen Delivery Method Room Air Intake Visit Reasons: EP RT side ear/throat pain Intake Note: pt is here today for rt side ear throat pain started sunday Patient Tobacco Use Status: Never used Tobacco Allergies ibuprofen [IBUPROFEN] Allergy (Intermediate, Verified 02/19/24 12:30) ABDOMINAL PAIN, LOW BP, low BP abd pain vommiting latex [LATEX] Allergy (Intermediate, Verified 02/19/24 12:30) Rash, Swelling artificial pineapple flavor Allergy (Severe, Uncoded 12/06/22 13:40) anaphylaxis, Difficulty breathing Do you need a note to return to daycare/school/sports/work: Yes HPI HPI Comments History of Present Illness Details 42 y/o female Patient presents today complaining of right ear and throat pain for the last 5 days. [facility] Medical History Anemia Anxiety and depression Bilateral renal stones GERD (gastroesophageal reflux disease) H. pylori infection Hypercholesterolemia Impaired glucose tolerance Overweight (BMI 25.0-29.9) Physical exam Sciatica, right side Vitamin D deficiency Weight gain Surgical History delivery delivered H/O tubal ligation S/P laparoscopic sleeve gastrectomy Scalp cyst Family History Father Kidney stones Mother Hypertension Obesity (BMI 30-39.9) Arthritis of knee RYNE (obstructive sleep apnea) Hyperthyroidism Brother No problems noted. Daughter No problems noted. Son No problems noted. Maternal Grandmother Heart attack Social History Alcohol intake: current Alcohol intake frequency: holidays/special occasions only Patient Tobacco Use Status: Never used Tobacco Cognitive needs: No Hearing needs: No Vision needs: No Review of Systems Const All systems reviewed & are unremarkable except as noted in HPI and below Eyes Reports no additional complaints ENT Reports otalgia and Reports sore throat Card Reports no additional complaints Resp Reports no additional complaints GI Reports no additional complaints Physical Exam Vital Signs: Last Vital Signs Temp 97.2 F 02/19/24 12:26 Pulse 70 02/19/24 12:26 BP 116/60 02/19/24 12:26 Pulse Ox 98 02/19/24 12:26 Oxygen Delivery Method Room Air 02/19/24 12:26 BMI result Body Mass Index 32.4 HEENT Head: Yes normal to inspection, Yes normocephalic and Yes atraumatic Ears: hearing grossly normal bilaterally and TM abnormal bulging and erythematous General nose exam: Normal external nose present Face and sinus: Yes normal facial exam Throat: Yes abnormal tonsil (Exudative) Resp Effort & Inspection: normal respiratory effort Auscultation: clear to auscultation bilaterally Cardio Rate: regular rate Rhythm: regular rhythm Heart sounds: S1 normal heart sound present and S2 normal heart sound present Results AMB Rapid Strep AMB Rapid Strep Negative Last Edit by Morenita Zazueta MA on 02/19/24 12:44 Results Reviewed Results Reviewed: Laboratory Last Values Strep Scn [facility] Negative 02/19/24 12:44 Assessment & Plan Assessment & Plan (1) Exudative pharyngitis: Code(s): J02.9 - Acute pharyngitis, unspecified Plan: The patient was ordered antibiotics for 10 days. 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
== END 2024-02-19 13:11 | disposition home or self-care (01) ==
PROVIDERS: PCP Internal Medicine; Visit Provider Physician Assistant Medical
DX: J02.9 Acute pharyngitis, unspecified (principal)
CPT/HCPCS: 87880; 99213

== ENCOUNTER 2024-02-22 15:45 | Outpatient (AMB) | payer OTHER, SELFPAY ==
--- NOTE | 2024-02-22 15:46 | AM.OFFWIN_ITS ---
Intake Vital Signs 02/22/24 15:47 Height 5 ft 3 in Weight 182 lb 8 oz BMI 32.3 BP 128/74 Blood Pressure Location Lt brachial Position Sitting Pulse 82 Pulse Source Pulse Oximeter Temp 98.0 F Temp Source Oral Pulse Oximetry (%) 100 Oxygen Delivery Method Room Air Intake Visit Reasons: EP RT eye concerns Intake Note: Pt presents to the office today for c/o right eye pain. She states the pain started yesterday afternoon. Patient Tobacco Use Status: Never used Tobacco Allergies ibuprofen [IBUPROFEN] Allergy (Intermediate, Verified 02/22/24 15:49) ABDOMINAL PAIN, LOW BP, low BP abd pain vommiting latex [LATEX] Allergy (Intermediate, Verified 02/22/24 15:49) Rash, Swelling artificial pineapple flavor Allergy (Severe, Uncoded 02/22/24 15:49) anaphylaxis, Difficulty breathing HPI HPI Comments History of Present Illness Details 33 y/o female patient who presents to [facility] today with c/o right eye pain since yesterday. Pt reports she was working on her garden, when she had some dirt splashed into her eyes. Reports feeling pressure behind right eyeball. Denies vision changes, headaches, tinnitus or light-sensitivity. Recently diagnosed with URI (right ear Otitis media), currently on Abx for 10 days. [facility] Medical History Impaired glucose tolerance Anemia Weight gain Anxiety and depression Physical exam H. pylori infection Vitamin D deficiency Bilateral renal stones Hypercholesterolemia GERD (gastroesophageal reflux disease) Overweight (BMI 25.0-29.9) Sciatica, right side Surgical History H/O tubal ligation delivery delivered Scalp cyst S/P laparoscopic sleeve gastrectomy Family History Father Kidney stones Mother Hypertension Obesity (BMI 30-39.9) Arthritis of knee RYNE (obstructive sleep apnea) Hyperthyroidism Brother No problems noted. Daughter No problems noted. Son No problems noted. Maternal Grandmother Heart attack Social History Alcohol intake: current Alcohol intake frequency: holidays/special occasions only Patient Tobacco Use Status: Never used Tobacco Cognitive needs: No Hearing needs: No Vision needs: No Review of Systems Const All systems reviewed & are unremarkable except as noted in HPI and below Physical Exam Vital Signs: Last Vital Signs Temp 98.0 F 02/22/24 15:47 Pulse 82 02/22/24 15:47 BP 128/74 02/22/24 15:47 Pulse Ox 100 02/22/24 15:47 Oxygen Delivery Method Room Air 02/22/24 15:47 BMI result Body Mass Index 32.3 Const General: comfortable and no acute distress Orientation/consciousness: patient oriented x3 HEENT Head: Yes normocephalic Ears: external ears normal and TM abnormal with fluid behind the TM bilateral; not with effusion, not erythematous, not perforated and not retracted General nose exam: No nasal discharge present and Abnormal mucous membranes and turbinates present pale Face and sinus: Yes sinuses nontender Mouth: moist mucous membranes Throat: Yes posterior oropharynx normal Eyes Conjunctivae: conjunctivae normal Sclerae: sclerae normal Corneas: corneas normal Pupils: Equal, round and reactive pupils present EOM: EOMs intact bilaterally Direct Ophthalmoscopy: normal light reflex Neuro General: patient oriented x3, gait normal and moves all extremities Cranial nerves: Yes Equal, round and reactive pupils present Psych Speech and movement: Normal speech and movement present Assessment & Plan Assessment & Plan (1) Dry eyes, bilateral: Code(s): H04.123 - Dry eye syndrome of bilateral lacrimal glands Plan - Maintain a good eye hygiene. - Wash hands with soap and water - Don't touch face. - No signs of infection. - RTC if not better - Educated on red flags and when to seek Emergency room. Medications: New ketotifen fumarate 0.025%(0.035%) (Zaditor) administer at least 8 hours apart on both eyes. 1 drp ophthalmic (eye) BID 5 mL 0RF H04.123 - Dry eye syndrome of bilateral lacrimal glands Coding Level of Care Code Est Pt Level 3 (71258) Diagnoses Dry eyes, bilateral H04.123 Time Spent (min) 15
[2024-02-22 15:47] VITALS: BP 128/74; PULSE 82; TEMP 36.7; O2SAT 100; BMI 32.3
== END 2024-02-22 16:04 | disposition home or self-care (01) ==
PROVIDERS: PCP Internal Medicine; Visit Provider Nurse Practitioner Family
DX: H04.123 Dry eye syndrome of bilateral lacrimal glands (principal)
CPT/HCPCS: 99213

== ENCOUNTER 2024-09-23 14:55 | Outpatient (AMB) | payer OTHER, SELFPAY ==
--- NOTE | 2024-09-23 14:57 | MHC.PC.OV ---
Vital Signs 09/23/24 14:59 Height 5 ft 3 in Weight 182 lb 0.2 oz BMI 32.2 BP 94/60 Blood Pressure Location Rt brachial Position Sitting Pulse 62 Pulse Source Pulse Oximeter Pulse Oximetry (%) 97 Oxygen Delivery Method Room Air Intake Visit Reasons: Physical Allergies ibuprofen [IBUPROFEN] Allergy (Intermediate, Verified 09/23/24 15:17) ABDOMINAL PAIN, LOW BP, low BP abd pain vommiting latex [LATEX] Allergy (Intermediate, Verified 09/23/24 15:17) Rash, Swelling artificial pineapple flavor Allergy (Severe, Uncoded 09/23/24 15:17) anaphylaxis, Difficulty breathing Medication List - Last Reconciled 09/23/24 by Manasa Ulloa PA-C No Known Home Meds Tobacco use date assessed: 11/27/22 Dental Screening Dental Screen Date: 09/23/24 Did you have a dental visit in the last 12 months?: No Did you have a dental problem in the last 6 months where you did not have access to dental care?: No HPI Physical HPI Details 34-year-old female with past medical history of laparoscopic sleeve gastrectomy 03/2020, GERD, iron-deficiency anemia, generalized anxiety disorder last seen by Dr. Aleman October 2022 coming in for annual exam. Patient states she follows with [facility] was in for Pap smears. She follows with a counselor every Sunday with [facility]. She states her eczema has resolved this time. She does mentioned she has increased acid reflux primarily in the mornings. She also mentioned she has excessively sweaty palms on occasion. [facility] Medical History Impaired glucose tolerance Anemia Weight gain Anxiety and depression Physical exam H. pylori infection Vitamin D deficiency Bilateral renal stones Hypercholesterolemia GERD (gastroesophageal reflux disease) Overweight (BMI 25.0-29.9) Sciatica, right side Surgical History H/O tubal ligation delivery delivered Scalp cyst S/P laparoscopic sleeve gastrectomy Family History Father Kidney stones Mother Hypertension Obesity (BMI 30-39.9) Arthritis of knee RYNE (obstructive sleep apnea) Hyperthyroidism Brother No problems noted. Daughter No problems noted. Son No problems noted. Maternal Grandmother Heart attack Social History Housing: House Alcohol intake: current Alcohol intake frequency: holidays/special occasions only Patient Tobacco Use Status: Never used Tobacco service: No Current occupational status: employed Cognitive needs: No Hearing needs: No Vision needs: No Female Reproductive History Menstrual control method: permanent sterilization Permanent Sterilization: BTL Total pregnancies: 5 Full term: 3 Ab spontaneous: 2 Questionnaire PHQ-9 Over the last 2 weeks, how often have you been bothered by any of the following problems? 1. Little interest or pleasure in doing things: several days 2. Feeling down, depressed, or hopeless: several days 3. Trouble falling or staying asleep, or sleeping too much: several days 4. Feeling tired or having little energy: several days 5. Poor appetite or overeating: several days 6. Feeling bad about yourself - or that you are a failure or have let yourself or your family down: not at all 7. Trouble concentrating on things, such as reading the newspaper or watching television: several days 8. Moving or speaking so slowly that other people could have noticed. Or the opposite - being so fidgety or restless that you have been moving around a lot more than usual: not at all 9. Thoughts that you would be better off or of hurting yourself in some way: not at all Total score: 6 Depression Screening Interpretation: Positive Depression Screening Follow-up: Existing condition and In treatment Depression Screening Done: Yes 87337 - PHQ-9 Billing: Yes Source: Developed by Drs. Christopher Ramírez, Divine Dominguez, Johann Brown and colleagues, with an educational hermann from [employer] Thrive Questionnaire Date Thrive assessed: 11/27/22 I am a: Patient What is your living situation today?: I have a steady place to live Within the past 12 months, did the food you bought not last and you didn't have the money to get more?: Never true Within the past 12 months, did you worry whether your food would run out before you got money to buy more?: Never true Do you have trouble paying for medicines?: No Do you have trouble getting transportation to medical appointments?: No Do you have trouble paying your heating and electricity bill?: Yes Do you have trouble taking care of your child, family member or friend?: No Do you have trouble with day-to-day activities such as bathing, preparing meals, shopping, managing finances, etc.?: No Are you currently unemployed and looking for a job?: Yes Are you interested in more education?: Yes Please select the resources that you would like help with: None Currently or been in a relationship where the following occur: I choose not to answer THRIVE Score: 1 AUDIT C Alcohol Use Questionnaire (AUDIT-C) 1. How often do you have a drink containing alcohol?: 2-3 times a week 2. How many drinks containing alcohol do you have on a typical day when you are drinking?: 1 or 2 3. How often do you have six or more drinks on one occasion?: Less than monthly Total Score: 4 GAYLE-7 AMB Questionnaire GAYLE-7 Date GAYLE - 7 assessed: 09/23/24 Feeling nervous, anxious, or on edge: 2 = More than half the days Not being able to stop or control worryin = Several days Worrying too much about different things: 1 = Several days Trouble relaxin = Several days Being so restless that it is hard to sit still: 2 = More than half the days Becoming easily annoyed or irritable: 2 = More than half the days Feeling afraid as if something awful might happen: 0 = Not at all Total GAYLE-7 score (0-4 normal; 5-9 mild; 10-14 moderate; 15-21 severe): 9 Source: Developed by Drs. Christopher Ramírez, Divine Dominguez, Johann Brown and colleagues, with an educational hermann from [employer] GAYLE-7 Assessment Billing GAYLE-7 Assessment Tool: GAYLE-7 Assessment 26468 Review of Systems Const Denies body aches, Denies fatigue, Denies fever(s), Denies frequent falls, Denies headache(s) and Denies weakness Eyes Reports no additional complaints and Denies change in vision ENT Denies dysphagia, Denies dizziness, Denies facial pain, Denies headache(s), Denies nasal congestion and Denies odynophagia Card Denies chest pain, Denies syncope, Denies irregular heart rhythm, Denies leg edema, Reports lightheadedness (occasional) and Denies dyspnea Resp Denies cough and Denies dyspnea GI Denies abdominal pain, Denies constipation, Denies dysphagia, Denies dyspepsia, Denies diarrhea, Reports nausea (with GERD), Denies odynophagia and Denies vomiting Denies urinary frequency, Denies dysuria, Denies urinary hesitancy and Denies urinary urgency Musc Denies back pain and Denies myalgias Skin/Breast Reports system reviewed and no additional complaints, except as documented Neuro Denies dizziness, Denies syncope, Denies frequent falls, Denies headache(s) and Denies weakness Psych Reports no additional complaints Endo Denies fatigue Physical exam (Primary Care) Vital Signs: Last Vital Signs Pulse 62 09/23/24 14:59 BP 94/60 09/23/24 14:59 Pulse Ox 97 09/23/24 14:59 Oxygen Delivery Method Room Air 09/23/24 14:59 BMI result Body Mass Index 32.2 Tobacco/Smoking Status: Tobacco use Status Tobacco use date assessed 11/27/22 09/23/24 15:03 Patient Tobacco Use Status Never used Tobacco 09/23/24 15:03 PHQ-9: PHQ-9 Score PHQ-9: Total score 6 09/23/24 15:03 Depression Screening Interpretation: Positive Depression Screening Follow-up: Existing condition and In treatment Thrive Assessment: Date of Thrive Assessment Date Thrive assessed 11/27/22 09/23/24 15:03 Currently or been in a relationship where the following occur: I choose not to answer Const General: cooperative, healthy appearing, comfortable and no acute distress Orientation/consciousness: patient oriented x3 [facility] Head: Yes normocephalic Ears: hearing grossly normal bilaterally, external ears normal, TM's normal bilaterally and EAC's normal General nose exam: Normal external nose present Face and sinus: Yes normal facial exam and Yes sinuses nontender Mouth: Normal oral and palatal mucosa present and tongue normal Throat: Yes posterior oropharynx normal Eyes General: appearance normal, both eyes and all related structures Conjunctivae: conjunctivae normal Pupils: Equal, round and reactive pupils present EOM: EOMs intact bilaterally and No Nystagmus present Neck Neck: Yes normal visual inspection, Yes full ROM and Yes no lymphadenopathy Chest Chest palpation & inspection: normal inspection of the chest Resp Effort & Inspection: normal respiratory effort Auscultation: clear to auscultation bilaterally, no crackles, no rales, no rhonchi, no wheezes and breath sounds present Cardio Rate: regular rate Rhythm: regular rhythm Peripheral pulses: radial pulses present and dorsalis pedis present GI Inspection: Yes normal to inspection and No Abdominal wall edema Palpation (GI): Soft to palpation, not firm and nontender Auscultation: normal bowel sounds Rectal Exam - Female: deferred General: Yes no CVA tenderness Back/Spine/Pelvis Back: no CVA tenderness Skin General skin exam: no rashes or lesions noted Neuro General: patient oriented x3 Cranial nerves: Yes Equal, round and reactive pupils present, Yes Midline tongue present, Yes Ability to bilaterally elevate shoulders present and No Nystagmus present Gait exam (Neuro): Normal gait present Extrem General: Yes normal to inspection, Yes full ROM, No no pedal edema and No edema Psych Speech and movement: Normal speech and movement present Affect: normal affect Insight: Good insight present (Psych) Judgement: Good judgement present (Psych) Coding Level of Care Code Est Pt Prev Care 18-39y(41595) Diagnoses Eczema L30.9 Iron deficiency anemia D50.9 Obesity (BMI 30-39.9) E66.9 Annual physical exam Z00.00 Generalized anxiety disorder F41.1 GERD (gastroesophageal reflux disease) K21.9 S/P laparoscopic sleeve gastrectomy Z98.84 Hyperhidrosis R61 Additional Codes GAYLE-7 Assessment Billing - GAYLE-7 Assessment Tool: GAYLE-7 Assessment 97864 ([id number]) PHQ-9 - 79331 - PHQ-9 Billing: Yes ([id number]) Assessment & Plan Assessment & Plan (1) Eczema: Code(s): L30.9 - Dermatitis, unspecified Category: Medical Plan: Patient states eczema has resolved since removing herself from a stressful relationship (2) Iron deficiency anemia: Code(s): D50.9 - Iron deficiency anemia, unspecified Category: Medical Plan: Ordered for updated blood work. Patient states she does have lightheadedness and occasional dizziness ordered for iron panel as well as CBC. Advised to drink plenty of water and increase iron rich foods such as leafy greens. (3) Obesity (BMI 30-39.9): Code(s): E66.9 - Obesity, unspecified Category: Medical Plan: Healthy diet and regular exercise is encouraged. (4) Annual physical exam: Code(s): Z00.00 - Encounter for general adult medical examination without abnormal findings Category: Medical Plan: Patient is up-to-date on all recommended routine screenings and vaccinations for her age. Ordered for updated blood work and follow up in 1 month review blood work and then yearly. (5) Generalized anxiety disorder: Comment: [facility] [employer] travel counselor Code(s): F41.1 - Generalized anxiety disorder Category: Medical Plan: Following with [facility] feels her symptoms are well managed at this time (6) GERD (gastroesophageal reflux disease): Code(s): K21.9 - Gastro-esophageal reflux disease without esophagitis Category: Medical Plan: Avoid trigger foods such as citrus, tomato products, soda, caffeine, spicy foods and other foods that may be irritating to your stomach. Avoid laying flat 3-4 hours after eating and elevate the head of the bed 30 degrees to prevent acid from moving into the esophagus. Started on omeprazole 10 mg nightly for symptoms. We will follow up in 1 month. (7) S/P laparoscopic sleeve gastrectomy: Comment: 04/07/20 Code(s): Z98.84 - Bariatric surgery status Category: Surgical Plan: Ordered for blood work including vitamin labs. (8) Hyperhidrosis: Code(s): R61 - Generalized hyperhidrosis Category: Medical Plan: Ordered for updated blood work to look for underlying cause. Plan This note was constructed using voice recognition software. While every effort has been made to ensure accuracy and manager creative, still areas may have been included sometimes these areas may affect the content or meeting of the given symptoms. Total time spent caring for the patient today was 30 minutes. This includes time spent before the visit reviewing the chart, time spent during the visit, and time spent after the visit and documentation. Orders: Orders Influenza [id number] Immunization Today Z23 - Encounter for immunization Complete Blood Count Auto Diff Today Z00.00 - Encounter for general adult medical examination without abnormal findings Comprehensive Met. Panel Today Z00.00 - Encounter for general adult medical examination without abnormal findings Free T4 (Free Thyroxine) Today Z00.00 - Encounter for general adult medical examination without abnormal findings IRON PROFILE Today D50.9 - Iron deficiency anemia, unspecified TSH reflex Free T4 Today Z00.00 - Encounter for general adult medical examination without abnormal findings Vitamin B12 and Folate Today Z00.00 - Encounter for general adult medical examination without abnormal findings Vitamin D 25-OH (D2 and D3) Today Z00.00 - Encounter for general adult medical examination without abnormal findings Lipid Panel Today E78.00 - Pure hypercholesterolemia, unspecified Referrals Optometry Referral Z00.00 - Encounter for general adult medical examination without abnormal findings Medications: New Fluarix Triv [id number] (PF) (flu vacc [id number] 6mos up(PF)) 0.5 mL IM ONCE 0.5 mL 0RF NS Z23 - Encounter for immunization omeprazole 10 mg PO DAILY 30 caps 1RF
[2024-09-23 14:59] VITALS: BP 94/60; PULSE 62; O2SAT 97; BMI 32.2
== END 2024-09-23 15:39 | disposition home or self-care (01) ==
PROVIDERS: PCP Internal Medicine
DX: Z00.00 Encounter for general adult medical examination without abnormal findings (principal); L30.9 Dermatitis, unspecified; E66.9 Obesity, unspecified; Z68.32 Body mass index [BMI] 32.0-32.9, adult; D50.9 Iron deficiency anemia, unspecified; F41.1 Generalized anxiety disorder; K21.9 Gastro-esophageal reflux disease without esophagitis; Z98.84 Bariatric surgery status; R61 Generalized hyperhidrosis

== ENCOUNTER → 2024-09-23 14:55 | Outpatient (BNVA) | payer OTHER, SELFPAY | PROVIDERS: PCP Internal Medicine | DX: Z00.00 Encounter for general adult medical examination without abnormal findings (principal); F41.1 Generalized anxiety disorder; K21.9 Gastro-esophageal reflux disease without esophagitis; R61 Generalized hyperhidrosis; L30.9 Dermatitis, unspecified; D50.9 Iron deficiency anemia, unspecified; E66.9 Obesity, unspecified; Z98.84 Bariatric surgery status | CPT/HCPCS: 96127; 99395 ==

== ENCOUNTER 2025-10-07 10:25 | Outpatient (AMB) | payer OTHER, SELFPAY ==
[2025-10-07 10:33] VITALS: BP 100/60; PULSE 89; TEMP 36.9; O2SAT 100; BMI 28.7
--- NOTE | 2025-10-07 10:33 | AM.OFFWIN_ITS ---
Intake Vital Signs 10/07/25 10:33 Height 5 ft 3 in Weight 162 lb BMI 28.7 BP 100/60 Blood Pressure Location Lt brachial Position Sitting Pulse 89 Pulse Source Pulse Oximeter Temp 98.5 F Temp Source Oral Pulse Oximetry (%) 100 Oxygen Delivery Method Room Air Intake Visit Reasons: EP inflammed pilar cyst on scalp fever in pain Intake Note: pt presents with painful and inflamed cyst on scalp- excised in the past but the sac wasn't removed completely Patient Tobacco Use Status: Never used Tobacco Allergies ibuprofen (IBUPROFEN) Allergy (Intermediate, Verified 10/07/25 10:39) ABDOMINAL PAIN, LOW BP, low BP abd pain vommiting latex (LATEX) Allergy (Intermediate, Verified 10/07/25 10:39) Rash, Swelling artificial pineapple flavor Allergy (Severe, Uncoded 10/07/25 10:39) anaphylaxis, Difficulty breathing Do you need a note to return to daycare/school/sports/work: Yes HPI HPI Comments History of Present Illness Details This is a 35-year-old female with a past medical history of scalp cysts and surgically removed presenting for evaluation of a scalp cyst that has been present for several months however became significantly painful 4 days ago. Patient denies having any discharge from the lesion or chills but reports a subjective fever this morning. She has been taking Tylenol only without relief of the pain. Patient has an appointment with surgery on Sunday to have this cyst completely removed. Patient comes today because the pain has become worse. FOR[facility] Medical History Impaired glucose tolerance Anemia Weight gain Anxiety and depression Physical exam H. pylori infection Vitamin D deficiency Bilateral renal stones Hypercholesterolemia GERD (gastroesophageal reflux disease) Overweight (BMI 25.0-29.9) Sciatica, right side Surgical History H/O tubal ligation delivery delivered Scalp cyst S/P laparoscopic sleeve gastrectomy Family History Father Kidney stones Mother Hypertension Obesity (BMI 30-39.9) Arthritis of knee RYNE (obstructive sleep apnea) Hyperthyroidism Brother No problems noted. Daughter No problems noted. Son No problems noted. Maternal Grandmother Heart attack Social History Housing: House Alcohol intake: current Alcohol intake frequency: holidays/special occasions only Patient Tobacco Use Status: Never used Tobacco service: No Current occupational status: employed Cognitive needs: No Hearing needs: No Vision needs: No Review of Systems Const All systems reviewed & are unremarkable except as noted in HPI and below Reports no additional complaints, Denies chills and Reports fever(s) (subjective) Musc Reports no additional complaints Skin/Breast Reports lesions (scalp) and Reports erythema Neuro Reports no additional complaints Psych Reports no additional complaints Endo Reports no additional complaints Natanael/Lymph Reports no additional complaints Aller/Immun Reports no additional complaints Physical Exam Vital Signs: Last Vital Signs Temp 98.5 F 10/07/25 10:33 Pulse 89 10/07/25 10:33 BP 100/60 10/07/25 10:33 Pulse Ox 100 10/07/25 10:33 Oxygen Delivery Method Room Air 10/07/25 10:33 BMI result Body Mass Index 28.7 Patient is afebrile. Const General: cooperative, healthy appearing, comfortable, no acute distress, well developed, alert, awake and Physically active; No lethargic Nutritional Appearance: average body habitus Orientation/consciousness: patient oriented x3 and No lethargic Limitations: no limitations HEENT Other: There is a 1.5cm raised, round, fluctuant and tender lesion on the superior aspect of the parietal bone. Skin Other: Skin lesions as described above with minimal surrounding erythema. Neuro General: patient oriented x3 Psych Appearance: grossly normal Mental Status: mental status grossly normal Insight: Good insight present (Psych) Judgement: Good judgement present (Psych) Office Procedures Incision and Drainage Details: There is a 1.5cm round, raised, fluctuant and tender lesion on the scalp. Incision and drainage performed by: Irlanda Coelho Informed consent given: Yes Consent signed: No Time out checklist: patient, procedure, site marked/identified, positioning of patient, supplies available and allergies confirmed Time out staff in room: Yes Time out verified: Yes Time out date: 10/07/25 Time out time: 10:47 Location: scalp Anesthesia: topical cream (Aspercream with Lidocaine spray (Lidocaine is not locally infiltrated)) Incision with: needle Drainage quality: purulent Probed cavity: No Culture taken: No Lesion: fluctuance Lesion size (cm): 2 Hemostasis: pressure Cavity management: irrigated Dressing: gauze Patient tolerated procedure: well Complications: No Assessment & Plan Assessment & Plan (1) Infected sebaceous cyst: Comment: Incision and drainage is performed utilizing an 18 gauge needle with significant purulence evacuated. Patient will be discharged home with antibiotic therapy. Code(s): L72.3 - Sebaceous cyst; L08.9 - Local infection of the skin and subcutaneous tissue, unspecified Plan: Warm moist compresses, Tylenol for discomfort, Keflex 500 mg q.8 hours, follow up with surgery this Sunday as previously scheduled. Medications: New cephalexin 500 mg PO Q8H 21 caps 0RF Coding Level of Care Code Est Pt Level 4 (85685) Diagnoses Infected sebaceous cyst L72.3; L08.9 CPT Codes Office Procedure ([id number]) Time Spent (min) 35
== END 2025-10-07 11:13 | disposition home or self-care (01) ==
PROVIDERS: PCP Internal Medicine; Visit Provider Physician Assistant
DX: L72.3 Sebaceous cyst (principal); L08.9 Local infection of the skin and subcutaneous tissue, unspecified

== ENCOUNTER → 2025-10-07 10:25 | Outpatient (BNVA) | payer OTHER, SELFPAY | PROVIDERS: PCP Internal Medicine; Visit Provider Physician Assistant | DX: L72.3 Sebaceous cyst (principal); L08.9 Local infection of the skin and subcutaneous tissue, unspecified | CPT/HCPCS: 10060; 99212 ==